=== PATIENT | female | born 1990 | race African-American/Black ===

== ENCOUNTER 2022-01-22 05:30 | Emergency (ER) | payer MEDICAID, SELFPAY ==
[2022-01-22 05:42] VITALS: BP 117/77; TEMP 37.4
--- NOTE | 2022-01-22 05:54 | ED.FEMALEGU ---
HPI - Female Genitourinary General Chief complaint: Vaginal Bleeding Stated complaint: vag bleeding 11 weeks preg Time Seen by Provider: 01/22/22 05:35 Source: patient History of Present Illness HPI Narrative: approximate 11 weeks by ultrasound presents with vaginal bleeding. Patient reports she was talking to her friend this morning she laughed felt like she right herself however when she looked down she noted blood so she called ambulance and came to the ER for evaluation as she was concerned she was a miscarriage. She denies any abdominal pain or cramping for she passed the one blood clot has not noted any additional bleeding she denies any urinary symptoms. Related Data Allergies Allergy/AdvReac Type Severity Reaction Status Date / Time No Known Allergies Allergy Unverified 12/29/21 15:07 Review of Systems Review of Systems: CONSTITUTIONAL: Denies fever, chills, or sweats. EYES: Denies visual changes, redness, or discharge. ENT: Denies rhinorrhea, congestion, sore throat, or otalgia. CARDIOVASCULAR: Denies chest pain, palpitations, or edema. RESPIRATORY: Denies cough or dyspnea. GASTROINTESTINAL: Denies abdominal pain, nausea, vomiting, or diarrhea. GENITOURINARY: Denies dysuria or hematuria. SKIN: Denies rash or itching. MUSCULOSKELETAL: Denies back pain, joint pain, or myalgia. NEUROLOGIC: Denies headache, numbness, dizziness, or weakness. PSYCHIATRIC: Denies anxiety or depression. All systems reviewed & are unremarkable except as noted in HPI and below PMFSH Past Medical History Medical History Asthma Right hand fracture Family History Family History Mother Cerebrovascular accident Seizure Social History Social History Smoking status: Never smoker Alcohol intake: never Substance use: never Gender identity (if verbalized by the patient): Female Exam Narrative: GENERAL: Well-appearing, well-nourished, and in no acute distress. HEAD: Normocephalic, atraumatic. EYES: PERRLA and EOMI. ENT: Nares clear, no rhinorrhea or epistaxis. Mucous membranes moist. NECK: Supple. No masses. No JVD ABDOMEN: Soft, nontender, nondistended, normal active bowel sounds. EXTREMITIES: Normal range of motion. No edema. SKIN: Warm, dry, no rash. NEURO: No focal deficits. Alert and oriented x3. PSYCH: Normal mood and affect. Course Course Emergency Course: Bedside ED transabdominal pelvic ultrasound. There is a single IUP with good movement heart rate of 150 no masses on the adnexa no fluid noted in the pelvis. Findings suggestive of viable single intrauterine Reevaluation(s) Reevaluation #1: Patient is resting comfortably Date: 01/22/22 Time: 07:16 Vital Signs Vital signs: Vital Signs Temperature 37.4 C 01/22/22 05:42 Blood Pressure 117/77 01/22/22 05:42 Temperature 37.4 C 01/22/22 05:42 Blood Pressure 117/77 01/22/22 05:42 MDM - Female Genitourinary MDM Narrative Medical decision making narrative: H&P as above, vss, pt looks clinically well, exam with nonacute abdomen, labs reassuring, img showed viable single IUP, additional labs/img considered, symptomatic relief available as needed, on reevaluation pt continues to looks clinically well. Suspect threatened , dns significant hemorrhage, loss, acute abdomen. plan to tx/monitor as op w/ OB f/u findings/plan discussed with pt, pt agree/comfortable with plan, return precautions given. Patient already has OB follow-up scheduled for Wednesday next week Lab Data Result diagrams: 01/22/22 06:02 Labs: Lab Results 01/22/22 01/22/22 01/22/22 Range/Units 06:02 06:02 06:02 WBC 4.2 L (4.5-10.0) K/mm3 RBC 3.68 L (4.2-5.4) M/mm3 Hgb 10.7 L (12.0-15.0) g/dL Hct 32.9 L (37.0-47.0) % MCV 89.4 (80-100) fl
[2022-01-22] MEDS: SODIUM CHLORIDE 0.9% IV 1,000 ML 999 ML IV CONT (05:59)
[2022-01-22 06:14] LABS: Basophils Percent Auto 0.2 % (0.2-1.2); Eosinophils Percent Auto 0.5 % (0-4.4); Hematocrit 32.9 % (37.0-47.0); Hemoglobin 10.7 g/dL (12.0-15.0); Immature Granulocyte Absolute 0.01 K/mm3 (0.00-0.031); Immature Granulocyte Percent A 0.2 % (0-0.5); Lymphocytes Absolute Auto 1.57 K/mm3 (0.9-3.2); Lymphocytes Percent Auto 37.5 % (18.3-44.2); Mean Corpuscular HGB Conc 32.5 g/dl (32-36); Mean Corpuscular Hemoglobin 29.1 pg (26-34); Mean Corpuscular Volume 89.4 fl (80-100); Mean Platelet Volume 10.7 fl (7.4-10.4); Monocytes Absolute Auto 0.3 K/mm3 (0.1-0.6); Monocytes Percent Auto 6.2 % (2.6-8.5); Neutrophils Absolute Auto 2.3 K/mm3 (1.3-6.7); Neutrophils Percent Auto 55.4 % (45.5-73.1); Platelet Count Result 173 k/mm3 (150-375); Red Blood Count 3.68 M/mm3 (4.2-5.4); Red Cell Distribution Width 11.6 % (11.5-14.5); White Blood Count 4.2 K/mm3 (4.5-10.0)
[2022-01-22 06:53] LABS: Add Urine Microscopic? YES; Appearance Urine Cloudy (Clear); Bilirubin Urine Negative (Negative); Blood Urine 2+ (Negative); Color Urine Amber (Yellow); Glucose Urine UA Negative (Negative); Ketones Urine 2+ mg/dL (Negative); Leukocyte Esterase Ur Negative LEU/UL (Negative); Mucus Urine Few /lpf; Nitrate Urine Negative (Negative); Protein Urine 2+ mg/dL (Negative); RBC Urine >75 /hpf (0-2); Squamous Epithelial Cell Urine Many /hpf (Few); Urobilinogen Urine Negative mg/dL (<2.0)
--- NOTE | 2022-01-22 07:25 | PC.NURSE ---
Per Dr. Sanchez, bedside sono by was ordered and done; someone cancelled his order and placed a different order; I called sono tech, had not started test yet. I instructed her not to start the test, return the pt. to the ED and I will cancel the order.
== END 2022-01-22 07:46 | disposition home or self-care (01) ==
PROVIDERS: Emergency Provider Emergency Medicine; PCP Obstetrics & Gynecology
DX: O20.0 Threatened abortion (principal); Z3A.11 11 weeks gestation of pregnancy; O99.511 Diseases of the respiratory system complicating pregnancy, first trimester; J45.909 Unspecified asthma, uncomplicated
CPT/HCPCS: 36415; 81001; 84702; 85025; 85461; 87086; 96360; 99284; J7030

== ENCOUNTER 2022-04-29 08:39 | Observation (INO) | payer OTHER, SELFPAY ==
--- NOTE | 2022-04-29 08:53 | OBADM ---
This patient, Kathryn Yuan, admitted to the OB room OB Post 117 for observation. Patient/family oriented to hospital policies and general routines including ID bracelet, bed and alarms, visiting hours, pain management, procedures, bathroom and other care routines, personal items, smoking policy, room service/diet, and visiting hours. Patient/Family are encouraged to report perceived risks to care and to ask questions if they do not understand what they are told or what they should do.
[2022-04-29 09:00] VITALS: BP 112/69; PULSE 87
[2022-04-29 09:21] LABS: Hemoglobin 11.1 g/dL (12.0-15.0); Mean Corpuscular HGB Conc 32.6 g/dl (32-36); Mean Corpuscular Hemoglobin 29.3 pg (26-34); Mean Corpuscular Volume 89.7 fl (80-100); Mean Platelet Volume 11.6 fl (7.4-10.4); Platelet Count Result 179 k/mm3 (150-375); Red Blood Count 3.79 M/mm3 (4.2-5.4); Red Cell Distribution Width 12.8 % (11.5-14.5); White Blood Count 7.8 K/mm3 (4.5-10.0)
[2022-04-29 09:35] LABS: Alanine Aminotransferase 12 U/L (6-35); Albumin Level 3.4 g/dL (3.5-5.1); Alkaline Phosphatase 61 U/L (38-126); Anion Gap 5 mmol/L (8-16); Aspartate Amino Transferase 21 U/L (14-36); Bilirubin,Total 0.2 mg/dL (0.2-1.3); Blood Urea Nitrogen 5 mg/dL (7-17); Calcium 8.6 mg/dL (8.4-10.2); Carbon Dioxide 21 mmol/L (22-30); Chloride 108 mmol/L (98-107); Estimated Glomerular Filt Rate > 60; Glucose 116 mg/dL (65-110); Potassium 3.2 mmol/L (3.4-5.0); Sodium 134 mmol/L (137-145)
--- NOTE | 2022-04-29 09:54 | PC.NURSE ---
0936- Labs reveiwed with Dr. Scanlon, orders to discharge to ED for further evaluation
[2022-04-29 09:59] LABS: Appearance Urine Clear (Clear); Bilirubin Urine 1+ (Negative); Blood Urine Negative (Negative); Color Urine Yellow (Yellow); Glucose Urine UA Negative (Negative); Ketones Urine Trace mg/dL (Negative); Leukocyte Esterase Ur Negative LEU/UL (NEGATIVE); Nitrate Urine Negative (Negative); Protein Urine Negative (Negative); Urobilinogen Urine 0.2 mg/dL (<2.0)
[2022-04-29 10:04] LABS: Mucus Urine Few /lpf; RBC Urine 0-2 /hpf (0-2); Squamous Epithelial Cell Urine Occasional /hpf (Few); WBC Urine 0-3 /hpf (0-3)
[2022-04-29 10:19] LABS: Add Urine Microscopic? YES
--- NOTE | 2022-04-30 12:24 | P.PNOB_ITS ---
OB - Triage/Final Diagnosis Visit Information Comments/Additional reasons for admission: I have assessed the risk for this patient, Kathryn Yuan, and determined that she would benefit from observation care. Evaluation Laboratory results: Laboratory Tests 04/29/22 04/29/22 04/29/22 09:04 09:04 09:04 WBC 7.8 RBC 3.79 L Hgb 11.1 L Hct 34.0 L MCV 89.7 MCH 29.3 MCHC 32.6 RDW 12.8 Plt Count 179 MPV 11.6 H Sodium 134 L Potassium 3.2 L Chloride 108 H Carbon Dioxide 21 L Anion Gap 5 L BUN 5 L Creatinine 0.60 L Estim Creat Clear Calc Not Reportable Estimated GFR > 60 Glucose 116 H Calcium 8.6 Total Bilirubin 0.2 AST 21 ALT 12 Alkaline Phosphatase 61 Total Protein 7.0 Albumin 3.4 L Urine Color Yellow Urine Appearance Clear Urine pH 6.0 Ur Specific [place] 1.020 Urine Protein Negative Urine Glucose (UA) Negative Urine Ketones Trace Ur Blood (Man) Negative Urine Nitrate Negative Urine Bilirubin 1+ H Urine Urobilinogen 0.2 Ur Leukocyte Esterase Negative Urine RBC 0-2 Urine WBC 0-3 Ur Squamous Epith Cells Occasional Urine Mucus Few H Final Diagnosis (1) Abdominal pain affecting : Code(s): O26.899 - Other specified related conditions, unspecified trimester; R10.9 - Unspecified abdominal pain Status: Acute
== END 2022-04-29 09:50 | disposition other institution (70) ==
PROVIDERS: Admitting Provider Obstetrics & Gynecology; Visit Provider Obstetrics & Gynecology
DX: O26.892 Other specified pregnancy related conditions, second trimester (principal); R10.9 Unspecified abdominal pain; Z3A.25 25 weeks gestation of pregnancy
CPT/HCPCS: 36415; 80053; 81001; 85027; 87086; G0378; G0379

== ENCOUNTER 2022-04-29 09:55 | Emergency (ER) | payer OTHER, SELFPAY ==
--- NOTE | ~2022-04-29 | US_ITS ---
US abdomen limited 04/29/2022 12:36 Indication: Patient 25 weeks . Acute right lower abdomen pain. Evaluate for appendicitis. Procedure: High-resolution Limited ultrasound of the right lower quadrant Comparison: Ultrasound dated 03/23/2022 Findings: Intrauterine is identified, partially visualized. The appendix is not demonstrate d. No abnormal masses or fluid collections. Impression: 1: Appendix not visualized. No abnormal masses or fluid collections identified in the right lower abd omen. Reviewed, dictated and finalized at location A. Impression: 1: Appendix not visualized. No abnormal masses or fluid collections identified in the right lower abdomen.
[2022-04-29 09:56] VITALS: BP 101/63; PULSE 86; RESP 18; TEMP 36.6; O2SAT 99
--- NOTE | 2022-04-29 11:11 | ED.GENADULT ---
HPI - General Adult General Chief complaint: Abdominal Pain Stated complaint: abd pain; cleared by [facility] Time Seen by Provider: 04/29/22 10:29 History of Present Illness HPI narrative: Patient is a 31-year-old female who presents to the ED with report of mid lower abdominal pain. Patient is G2, P1 and currently 25 weeks . She reports she was driving around 8 AM this morning when she suddenly developed severe pain in her mid lower abdomen. She states the pain felt like contractions and would present very severely, and then subside for approximately 5 minutes. She states she felt lightheaded at that time due to the pain, but denied any nausea or vomiting. She was seen by her ENVIRONMENTAL CONFLICT MANAGER today and reportedly cleared regarding the baby. She was then sent here for further evaluation. She had blood work and a urinalysis done prior to arrival. Patient reports pain is improved currently, but she now reports having pain in her lower back. She has not taken any Tylenol for the pain. Denies any recent fever, chills, chest pain, difficulty breathing, urinary symptoms, constipation, diarrhea, vaginal bleeding, leakage of fluid. She has had a relatively uneventful thus far. She states baby has been very active today. Related Data Allergies Allergy/AdvReac Type Severity Reaction Status Date / Time No Known Allergies Allergy Verified 04/29/22 10:18 Review of Systems Review of Systems: CONSTITUTIONAL: Denies fever, chills, or sweats. EYES: Denies visual changes. CARDIOVASCULAR: Denies chest pain. RESPIRATORY: Denies cough or dyspnea. GASTROINTESTINAL: Reports mid lower ABD pain. Denies constipation, nausea, vomiting, or diarrhea. GENITOURINARY: Denies dysuria, vaginal bleeding, leakage of fluid, or hematuria. MUSCULOSKELETAL: Reports lower back pain. NEUROLOGIC: Reports lightheadedness. Denies headache, numbness, or weakness. All systems reviewed & are unremarkable except as noted in HPI and below PMFSH Past Medical History Medical History (Updated 04/29/22 @ 13:28 by Carissa Weir PA-C) Asthma Right hand fracture Surgical History Surgical History (Updated 04/29/22 @ 11:18 by Carissa Weir PA-C) No pertinent past surgical history Family History Family History Mother Cerebrovascular accident Seizure Social History Social History Smoking status: Never smoker Alcohol intake: never Substance use: never Gender identity (if verbalized by the patient): Female Exam Narrative: GENERAL: Well appearing, well-nourished, non-toxic, in no acute distress. HEAD: Normocephalic, atraumatic. THROAT: Pharynx clear, no exudate. MMs moist. NECK: Supple. No adenopathy, no masses. RESPIRATORY: Airway patent, respirations nonlabored. Clear to auscultation bilaterally, no rales, rhonchi, wheezing. CARDIOVASCULAR: Regular rate and rhythm without murmurs, rubs, or gallops. Radial pulses 2+ and equal bilaterally. ABDOMINAL: Soft, uterus gravid, mild TTP just below umbilicus. No localized RLQ or LLQ tenderness. Normoactive BS. MUSCULOSKELETAL: Moves all extremities. Strength/ROM intact without gross deformities. SKIN: Warm, dry, normal color. No rashes. NEURO: A&O X3. Speech clear. Cranial nerves II-XII grossly intact. Steady gait. No ataxic movements. PSYCHIATRIC: Appropriate mood and affect. Normal interaction. Course Consultations Consultation #1: Discussed case with Dr. Scanlon, ENVIRONMENTAL CONFLICT MANAGER, reported patient was complaining of RLQ pain on her examination. Recommended attempting ultrasound to try to visualize appendix. Otherwise patient can be discharged home with strict return precautions and follow-up at her appointment on Wednesday. Date: 04/29/22 Time: 11:57 Vital Signs Vital signs: Vital Signs Temperature 97.8 F 04/29/22 09:56 Pulse Rate 86 04/29/22 09:56 Respiratory Rate 18 04/29/22 09:56 Blood Pressur
[2022-04-29] MEDS: SODIUM CHLORIDE 0.9% IV 1,000 ML 999 ML IV CONT (11:38)
[2022-04-29 13:22] VITALS: BP 139/76; PULSE 70; RESP 17; O2SAT 98
[2022-04-29] MEDS: POTASSIUM CHLORIDE 20 MEQ TABLET 40 MEQ PO (13:43)
== END 2022-04-29 13:50 | disposition home or self-care (01) ==
PROVIDERS: Emergency Provider Emergency Medicine; PCP Obstetrics & Gynecology
DX: O26.892 Other specified pregnancy related conditions, second trimester (principal); R10.31 Right lower quadrant pain; O99.512 Diseases of the respiratory system complicating pregnancy, second trimester; J45.909 Unspecified asthma, uncomplicated; Z3A.25 25 weeks gestation of pregnancy
CPT/HCPCS: 36415; 76705; 80053; 81001; 85027; 87086; 96361; 96365; 99284; A9270; G0378; G0379; J0131; J7030

== ENCOUNTER 2022-05-14 18:03 | Observation (INO) | payer OTHER, SELFPAY ==
[2022-05-14 18:26] VITALS: BP 103/60; PULSE 90
[2022-05-14 18:30] VITALS: BP 105/68; PULSE 87
[2022-05-14 18:37] VITALS: BMI 45.1
[2022-05-14 18:42] LABS: Appearance Urine Clear (Clear); Bilirubin Urine 1+ (Negative); Blood Urine Trace-lysed (Negative); Color Urine Yellow (Yellow); Glucose Urine UA Trace mg/dL (Negative); Ketones Urine 2+ mg/dL (Negative); Leukocyte Esterase Ur 1+ LEU/UL (NEGATIVE); Nitrate Urine Negative (Negative); Protein Urine 2+ mg/dL (Negative); Specific Grav Ur >= 1.030 (1.001-1.035)
[2022-05-14 18:47] LABS: Amorphous Sediment Urine Few; Bacteria Urine Trace /hpf; Mucus Urine Heavy /lpf; RBC Urine 21-50 /hpf (0-2); Squamous Epithelial Cell Urine Many /hpf (Few); WBC Urine 21-30 /hpf (0-3)
[2022-05-14 18:48] LABS: Add Urine Microscopic? YES
[2022-05-14] MEDS: ACETAMINOPHEN 500 MG TABLET 1000 MG PO (19:35)
--- NOTE | 2022-05-20 12:51 | PM.OBTRLD ---
OB - Triage/Final Diagnosis Visit Information Reason for evaluation: threatened labor Comments/Additional reasons for admission: I have assessed the risk for this patient, Kathryn Yuan, and determined that she would benefit from observation care. Evaluation Laboratory results: Laboratory Tests 05/14/22 18:27 Urine Color Yellow Urine Appearance Clear Urine pH 6.0 Ur Specific [place] >= 1.030 Urine Protein 2+ H Urine Glucose (UA) Trace H Urine Ketones 2+ H Ur Blood (Man) Trace-lysed Urine Nitrate Negative Urine Bilirubin 1+ H Urine Urobilinogen 1.0 Ur Leukocyte Esterase 1+ H Urine RBC 21-50 H Urine WBC 21-30 H Ur Squamous Epith Cells Many H Amorphous Sediment Few H Urine Bacteria Trace Urine Mucus Heavy H
== END 2022-05-14 20:05 | disposition home or self-care (01) ==
PROVIDERS: Admitting Provider Obstetrics & Gynecology; PCP Obstetrics & Gynecology; Visit Provider Obstetrics & Gynecology
DX: O26.899 Other specified pregnancy related conditions, unspecified trimester (principal); R31.9 Hematuria, unspecified; Z3A.00 Weeks of gestation of pregnancy not specified
CPT/HCPCS: 81001; 87086; A9270; G0378; G0379

== ENCOUNTER 2022-05-21 15:43 | Observation (INO) | payer OTHER, SELFPAY ==
--- NOTE | ~2022-05-21 | US_ITS ---
EXAMINATION: US OB limited DATE: 05/21/2022 17:06 INDICATION: Spotting during third trimester TECHNIQUE: Real-time ultrasound of the pelvis was performed. The interpreting radiologist was not pre sent for the study. COMPARISON: None. FINDINGS: There is a single living fetus in breech presentation. The placenta is posterior and 7.9 cm from the internal cervical os. The cervical length is 4.2 cm. cardiac activity and movem ent are noted. heart rate is 145 beats per minute (bpm). The amniotic fluid index is subjective ly normal. IMPRESSION: 1. Single living fetus in breech presentation. 2. No sonographic correlate for spotting. Reviewed, dictated and finalized at location F.
--- NOTE | 2022-05-21 15:43 | OBADM ---
This patient, Kathryn Yuan, admitted to the OB room OB Post 111 for observation. Patient/family oriented to hospital policies and general routines including ID bracelet, bed and alarms, visiting hours, pain management, procedures, bathroom and other care routines, personal items, smoking policy, room service/diet, and visiting hours. Patient/Family are encouraged to report perceived risks to care and to ask questions if they do not understand what they are told or what they should do.
[2022-05-21 16:18] VITALS: BP 96/53; PULSE 78
[2022-05-21 16:24] VITALS: BMI 45.6
[2022-05-21 16:29] VITALS: BP 96/64; PULSE 81
[2022-05-21 16:44] VITALS: BP 95/63; PULSE 78
[2022-05-21 17:12] LABS: Bacteria Urine Trace /hpf; Mucus Urine Moderate /lpf; Squamous Epithelial Cell Urine Moderate /hpf (Few)
[2022-05-21 17:14] LABS: Add Urine Microscopic? YES; Appearance Urine Clear (Clear); Bilirubin Urine 1+ (Negative); Blood Urine Trace-lysed (Negative); Color Urine Yellow (Yellow); Glucose Urine UA Negative (Negative); Ketones Urine 1+ mg/dL (Negative); Leukocyte Esterase Ur 1+ LEU/UL (Negative); Nitrate Urine Negative (Negative); Protein Urine 1+ mg/dL (Negative); Specific Grav Ur >= 1.030 (1.001-1.035); pH Urine 5.5 (5.0-9.0)
[2022-05-21] MEDS: FLUCONAZOLE 150 MG TABLET PO (17:56)
--- NOTE | 2022-05-25 16:55 | PM.OBTRLD ---
OB - Triage/Final Diagnosis Visit Information Comments/Additional reasons for admission: I have assessed the risk for this patient, Kathryn Yuan, and determined that she would benefit from observation care. Evaluation Laboratory results: Laboratory Tests 05/21/22 16:47 Urine Color Yellow Urine Appearance Clear Urine pH 5.5 Ur Specific [place] >= 1.030 Urine Protein 1+ H Urine Glucose (UA) Negative Urine Ketones 1+ H Ur Blood (Man) Trace-lysed Urine Nitrate Negative Urine Bilirubin 1+ H Urine Urobilinogen 1.0 Leukocyte Esterase Rfl 1+ H Urine RBC 6-10 H Urine WBC 7-9 H Ur Squamous Epith Cells Moderate H Urine Bacteria Trace Urine Mucus Moderate H Final Diagnosis (1) Abdominal pain affecting : Code(s): O26.899 - Other specified related conditions, unspecified trimester; R10.9 - Unspecified abdominal pain Status: Acute
== END 2022-05-21 18:06 | disposition home or self-care (01) ==
PROVIDERS: Admitting Provider Obstetrics & Gynecology; Visit Provider Obstetrics & Gynecology
DX: O26.893 Other specified pregnancy related conditions, third trimester (principal); R10.9 Unspecified abdominal pain; Z3A.28 28 weeks gestation of pregnancy
CPT/HCPCS: 76815; 81001; 87086; 87088; A9270; G0378; G0379

== ENCOUNTER 2022-07-22 12:49 | Inpatient (IN) | payer OTHER, SELFPAY ==
[2022-07-22] VITALS (65 sets, daily range): BP systolic 95–136; BP diastolic 55–97; PULSE 64–116; RESP 18; TEMP 35.9–36.6; O2SAT 99–100; BMI 46.7
[2022-07-22 14:58] LABS: Basophils Percent Auto 0.1 % (0.2-1.2); Eosinophils Percent Auto 0.1 % (0-4.4); Hematocrit 34.6 % (37.0-47.0); Hemoglobin 11.3 g/dL (12.0-15.0); Immature Granulocyte Absolute 0.06 K/mm3 (0.00-0.031); Immature Granulocyte Percent A 0.8 % (0-0.5); Lymphocytes Absolute Auto 1.22 K/mm3 (0.9-3.2); Lymphocytes Percent Auto 16.6 % (18.3-44.2); Mean Corpuscular HGB Conc 32.7 g/dl (32-36); Mean Corpuscular Hemoglobin 28.7 pg (26-34); Mean Corpuscular Volume 87.8 fl (80-100); Mean Platelet Volume 11.7 fl (7.4-10.4); Monocytes Absolute Auto 0.4 K/mm3 (0.1-0.6); Monocytes Percent Auto 5.8 % (2.6-8.5); Neutrophils Absolute Auto 5.6 K/mm3 (1.3-6.7); Neutrophils Percent Auto 76.6 % (45.5-73.1); Platelet Count Result 173 k/mm3 (150-375); Red Blood Count 3.94 M/mm3 (4.2-5.4); Red Cell Distribution Width 12.9 % (11.5-14.5); White Blood Count 7.4 K/mm3 (4.5-10.0)
[2022-07-22 14:59] LABS: Appearance Urine Clear (Clear); Bilirubin Urine Negative (Negative); Blood Urine Negative (Negative); Color Urine Yellow (Yellow); Glucose Urine UA Negative (Negative); Ketones Urine Negative (Negative); Leukocyte Esterase Ur Negative LEU/UL (NEGATIVE); Nitrate Urine Negative (Negative); Protein Urine Negative (Negative); Specific Grav Ur 1.015 (1.001-1.035); Urobilinogen Urine 0.2 mg/dL (<2.0)
[2022-07-22 15:08] LABS: Add Urine Microscopic? NO; Bacteria Urine Trace /hpf; Mucus Urine Rare /lpf; RBC Urine 0-2 /hpf (0-2); Squamous Epithelial Cell Urine Rare /hpf (Few)
[2022-07-22 15:12] LABS: Alanine Aminotransferase 11 U/L (6-35); Albumin Level 3.4 g/dL (3.5-5.1); Alkaline Phosphatase 106 U/L (38-126); Anion Gap 7 mmol/L (8-16); Aspartate Amino Transferase 17 U/L (14-36); Bilirubin,Total 0.3 mg/dL (0.2-1.3); Blood Urea Nitrogen 5 mg/dL (7-17); Calcium 8.4 mg/dL (8.4-10.2); Carbon Dioxide 20 mmol/L (22-30); Chloride 106 mmol/L (98-107); Estimated Glomerular Filt Rate > 60; Glucose 85 mg/dL (65-110); Potassium 3.8 mmol/L (3.4-5.0); Sodium 133 mmol/L (137-145)
[2022-07-22 15:13] LABS: Creatinine Urine 82.8 mg/dL; Total Protein Urine Random 7 mg/dL; Ur Ttl Prot Creatinine Ratio 0.08 mg/mg (0-0.20)
[2022-07-22] MEDS: AMPICILLIN 2 GM/NS 100 ML 2 GM/100 ML BAG IVPB (15:50)
[2022-07-22] MEDS: LACTATED RINGERS 1,000 ML 125 ML IV CONT ×2 (15:51→20:03)
[2022-07-22] MEDS: OXYTOCIN 30 UNITS/NS 500 ML 30 UNITS/500 ML BAG IV CONT (15:51)
--- NOTE | 2022-07-22 15:52 | LDADM ---
This patient, Kathryn Yuan, was admitted to Labor/Delivery/Recovery 103 on 07/22/22 at 12:49. Plans for labor, pain management and were discussed with patient. Patient/family oriented to hospital policies and general routines including ID bracelet, bed and alarms, visiting hours, pain management, procedures, bathroom and other care routines, personal items, smoking policy, room service/diet and guest tray routines, security routines, and visiting hours. Patient/Family are encouraged to report perceived risks to care and to ask questions if they do not understand what they are told or what they should do. See OBIX for further documentation.
[2022-07-22 15:53] LABS: HIV 1/2 Ab P24 Ag Result Negative (Negative)
--- NOTE | 2022-07-22 16:08 | PC.NURSE ---
1301- called,informed pt arrived via EMS. Pt states she is having contractions. SVE is 1.5cm/thick/high. Variability is moderate with an acceleration noted on tracing. Orders received to induce pt with low dose pitocin and draw PIH labs.
[2022-07-22 16:22] LABS: Glucose Point of Care 128 mg/dl (65-105)
--- NOTE | 2022-07-22 17:56 | WPDANESEPP ---
Anes - Eval Pre Procedure Procedure: Labor Epidural Date/Time: 07/22/22 17:56 Surgeon: Capo Preop Diagnosis: labor pain Pre Op Diagnosis: labor pain Patient Data Age: 31 Gender: F Height: 1.57 m Weight: 115.9 kg Last Vital Signs Temp 35.9 C L 07/22/22 12:59 Pulse 109 H 07/22/22 17:46 BP 103/70 07/22/22 17:46 O2 Del Method Room Air 07/22/22 16:06 Allergies Allergy/AdvReac Type Severity Reaction Status Date / Time No Known Allergies Allergy Verified 06/18/22 09:47 Home Medications Medication Instructions Recorded Confirmed Type vitamin no.102-iron 90 1 cap PO DAILY #90 caps 12/29/21 07/22/22 Rx mg-folate 1 mg-dha 200 mg capsule sertraline 50 mg tablet 50 mg PO DAILY #90 tabs 05/06/22 07/13/22 Rx Laboratory Tests 07/22/22 07/22/22 07/22/22 14:26 14:26 14:26 WBC 7.4 K/mm3 K/mm3 (4.5-10.0) RBC 3.94 M/mm3 L M/mm3 (4.2-5.4) Hgb 11.3 g/dL L g/dL (12.0-15.0) Hct 34.6 % L % (37.0-47.0) MCV 87.8 fl fl (80-100) MCH 28.7 pg pg (26-34) MCHC 32.7 g/dl g/dl (32-36) RDW 12.9 % % (11.5-14.5) Plt Count 173 k/mm3 k/mm3 (150-375) MPV 11.7 fl H fl (7.4-10.4) Immature Gran % (Auto) 0.8 % H % (0-0.5) Neut % (Auto) 76.6 % H % (45.5-73.1) Lymph % (Auto) 16.6 % L % (18.3-44.2) [place] % (Auto) 5.8 % % (2.6-8.5) Eos % (Auto) 0.1 % % (0-4.4) Baso % (Auto) 0.1 % L % (0.2-1.2) Lymph # (Auto) 1.22 K/mm3 K/mm3 (0.9-3.2) [place] # (Auto) 0.4 K/mm3 K/mm3 (0.1-0.6) Eos # (Auto) 0.0 K/mm3 K/mm3 (0-0.3) Baso # (Auto) 0.0 K/mm3 K/mm3 (0.0-0.1) Abs Immat Gran (auto) 0.06 K/mm3 H K/mm3 (0.00-0.031) Absolute Neuts (auto) 5.6 K/mm3 K/mm3 (1.3-6.7) Absolute Nucleated RBC 0.0 K/mm3 K/mm3 (0.0-0.012) Nucleated RBC % 0.0 % % (0.0-0.2) Sodium Potassium Chloride Carbon Dioxide Anion Gap BUN Creatinine Estim Creat Clear Calc Estimated GFR Glucose POC Capillary Glucose Uric Acid Cancelled Calcium Total Bilirubin AST ALT Alkaline Phosphatase Total Protein Albumin Urine Color Urine Appearance Urine pH Ur Specific [place] Urine Protein Urine Glucose (UA) Urine Ketones Ur Blood (Man) Urine Nitrate Urine Bilirubin Urine Urobilinogen Ur Leukocyte Esterase Urine RBC Ur Squamous Epith Cells Urine Bacteria Urine Mucus U Random Total Protein Urine Creatinine Protein/Creat Ratio 2 RPR Pending HIV 1&2 Ab/P24 Ag 4thGn Blood Type Antibody Screen 07/22/22 07/22/22 07/22/22 14:26 14:26 14:26 WBC RBC Hgb Hct MCV MCH MCHC RDW Plt Count MPV Immature Gran % (Auto) Neut % (Auto) Lymph % (Auto) [place] % (Auto) Eos % (Auto) Baso % (Auto) Lymph # (Auto) [place] # (Auto) Eos # (Auto) Baso # (Auto) Abs Immat Gran (auto) Absolute Neuts (auto) Absolute Nucleated RBC Nucleated RBC % Sodium 133 mmol/L L mmol/L (137-145) Potassium 3.8 mmol/L mmol/L (3.4-5.0) Chloride 106 mmol/L mmol/L (98-107) Carbon Dioxide 20 mmol/L L mmol/
--- NOTE | 2022-07-22 18:55 | PM.IMHP ---
H&P: HPI History of Present Illness Date/Time: 07/22/22 18:55 Chief Complaint: BPP 4/10 Narrative: Kathryn is a 31yo @ 37.0wks who presented to L&D via ambulance from [facility] office. She was being seen there for co-management of her A2GDM. NST was reactive, but BPP was only positive for fluid; BPP 4/10. She was also found to be having irregular contractions, and on arrival to clinic did have an elevated blood pressure. She denies any bleeding or LOF. Feeling good movements. Her is complicated by: - Obesity -?A2GDM, insulin 14u BID - Anxiety/depression on zoloft Review of Systems Review of Systems: All systems reviewed & are unremarkable except as noted in HPI and below PMFSH Past Medical History Medical History Asthma Right hand fracture Surgical History Surgical History No pertinent past surgical history Family History Family History Mother Cerebrovascular accident Seizure Social History Social History Smoking status: Never smoker Alcohol intake: never Substance use: never Gender identity (if verbalized by the patient): Female Spiritual care concerns: No Meds Home Medications and Allergies Home Medications Medication Instructions Recorded Confirmed Type vitamin no.102-iron 90 1 cap PO DAILY #90 caps 12/29/21 07/22/22 Rx mg-folate 1 mg-dha 200 mg capsule sertraline 50 mg tablet 50 mg PO DAILY #90 tabs 05/06/22 07/13/22 Rx Allergies Allergy/AdvReac Type Severity Reaction Status Date / Time No Known Allergies Allergy Verified 06/18/22 09:47 Vital Signs Vital Signs - 24 hr 07/22/22 12:57 07/22/22 13:01 07/22/22 13:15 Temperature Pulse Rate 64 64 68 Blood Pressure 126/81 118/78 109/67 Oxygen Delivery 07/22/22 13:30 07/22/22 13:45 07/22/22 14:00 Temperature Pulse Rate 69 69 68 Blood Pressure 119/76 119/81 121/82 Oxygen Delivery 07/22/22 16:17 07/22/22 12:59 07/22/22 16:30 Temperature 96.6 F L Pulse Rate 82 96 Blood Pressure 104/71 112/71 Oxygen Delivery 07/22/22 16:45 07/22/22 17:01 07/22/22 17:16 Temperature Pulse Rate 89 91 97 Blood Pressure 127/69 136/97 H 111/75 Oxygen Delivery 07/22/22 17:31 07/22/22 17:46 07/22/22 18:02 Temperature Pulse Rate 87 109 H 79 Blood Pressure 108/88 103/70 95/59 L Oxygen Delivery 07/22/22 18:15 07/22/22 18:17 07/22/22 18:31 Temperature 98 F Pulse Rate 82 75 Blood Pressure 110/73 107/73 Oxygen Delivery 07/22/22 18:46 07/22/22 16:06 Temperature Pulse Rate 72 Blood Pressure 107/73 Oxygen Delivery Room Air Exam Const: General: cooperative, comfortable and no acute distress Nutritional Appearance: obese Resp: Effort & Inspection: normal respiratory effort Cardio: Rate: regular rate GI: GI Palp: No abdominal tenderness and Yes Soft to palpation : Other: FHT's: 130's/ mod yifan/ + accels/ no decels - cat 1 TOCO: ctx's q2min Cervix: 1.5/thick/-4 Membranes: intact Presentation; cephalic H&P: Results Labs Labs: Short CBC 07/22/22 Range/Units 14:26 WBC 7.4 (4.5-10.0) K/mm3 Hgb 11.3 L (12.0-15.0) g/dL Hct 34.6 L (37.0-47.0) % Plt Count 173 (150-375) k/mm3 BMP 07/22/22 14:26 Sodium 133 L Potassium 3.8 Chloride 106 Carbon Dioxide 20 L BUN 5 L Creatinine 0.60 L Glucose 85 Calcium 8.4 Liver Function 07/22/22 Range/Units 14:26 Total Bilirubin 0.3 (0.2-1.3) mg/dL AST 17 (14-36) U/L ALT 11 (6-35) U/L Alkaline Phosphatase 106 (38-126) U/L Albumin 3.4 L (3.5-5.1) g/dL Urine 07/22/22 Range/Units 14:26 Urine Color Yellow (Yellow) Urine Appearance Clear (Clear) Urine pH 6.0 (5.0-9.0) Ur Specific [place]
[2022-07-22] MEDS: AMPICILLIN 1 GM/NS 50 ML 1 GM/50 ML BAG IVPB ×2 (19:49→23:48)
[2022-07-22 20:22] LABS: Glucose Point of Care 110 mg/dl (65-105)
[2022-07-22] MEDS: DINOPROSTONE 10 MG VAG INSERT VAGINAL (23:05)
[2022-07-23] VITALS (250 sets, daily range): BP systolic 71–133; BP diastolic 36–85; PULSE 48–211; RESP 16–20; TEMP 35.9–37.1; O2SAT 96–100
[2022-07-23 00:26] LABS: Glucose Point of Care 79 mg/dl (65-105)
[2022-07-23] MEDS: fentaNYL CITRATE INJ (*CRX) 100 MCG/2 ML VIAL 50 MCG IV PUSH (01:36)
[2022-07-23] MEDS: LACTATED RINGERS 1,000 ML 125 ML IV CONT ×4 (02:52→06:13)
[2022-07-23] MEDS: AMPICILLIN 1 GM/NS 50 ML 1 GM/50 ML BAG IVPB ×3 (03:48→12:00)
--- NOTE | 2022-07-23 04:09 | WPDANESEPN ---
Anes - Epidural Procedure Note Date/Time: 07/23/22 04:09 Consent: I have discussed with the patient/family/POA, the placement of an epidural catheter and the use of epidural narcotic/local anesthetic for labor analgesia and/or postoperative pain management, including associated potential risks, benefits, complications and side effects. I have discussed alternative methods of labor analgesia and/or postoperative pain management. The patient/family/POA, understand(s) and wish(es) to proceed with epidural narcotic/local anesthetic for labor analgesia and/or postoperative pain management. Time-Out: A pre-procedural Time-Out was completed immediately before starting the procedure and confirmed: Patient Identification, Site, Procedure, Patient Position and the Availability of Requisite Equipment. Epidural Insertion Note Skin prep: chlorhexidine and sterile drape Needle: 18g Tuohy-Schliff Catheter: 20g Unstyleted Technique: Loss of resistance. Level of insertion: L3/4 Catheter skin leda (cm): 6 Length in epidural space (cm): 12 Skin anesthesia: lidocaine 1% Test dose: 1.5% Lidocaine with 1:[id number] Epi, negative for subarachnoid Inj and negative for intravascular Inj Time of test dose: 03:14 Observations: tolerated well Complications: none
[2022-07-23 04:53] LABS: Glucose Point of Care 98 mg/dl (65-105)
[2022-07-23 07:19] LABS: Rapid Plasma Reagin Non-Reactive (NonReactive)
[2022-07-23 08:38] LABS: Glucose Point of Care 88 mg/dl (65-105)
[2022-07-23 12:22] LABS: Glucose Point of Care 85 mg/dl (65-105)
--- NOTE | 2022-07-23 13:04 | PM.OBPRVD ---
OB - Delivery Note Procedure Events: Gestational Diabetes and Other (BPP 4/10) Induction method: Per Cervidil Protocol Delivery augmentation: Rupture of Membranes and Pitocin Delivery monitor: External FHT and External Uterine Route of delivery: Laceration Description: None Specimen: Yes Quantitative Blood Loss (ml): 50 Anesthesia type: Epidural Disposition: Floor Baby Date of : 07/23/22 Time of : 12:53 Weeks of gestation at delivery: 37 (.1) gender: Male Weight (pounds): 5 Weight (ounces): 12 presentation: vertex position: Left Occiput Anterior Placenta delivery description: Expressed Cord Vessel Description: 3 Vessels, Nuchal Cord, Loose and Delayed Cord Clamping score one minute: 8 score five minutes: 9 Narrative: Kathryn progressed to complete dilation with strong desire to push. Recurrent deep variables were noted. However she pushed with good maternal effort for approximately 15 minutes and delivered the head over intact perineum. Nuchal cord was noted but delivered through. She easily delivered the 's shoulders and body without complication. The infant was immediately placed skin to skin with spontaneous cry. His mouth and nose were bulb suctioned. Delayed cord clamping was performed. The umbilical cord was then clamped and cut. With Pitocin running and gentle downward traction on the cord, the placenta delivered without complications. Minimal bleeding with good uterine tone was noted. She was examined and no lacerations were noted. Sponge, lap, instrument, and needle counts were correct at the end the procedure. Mom and baby were left bonding in the birthing suite in stable condition. [facility] Delivery Billing Delivery Delivery: Delivery Charge
[2022-07-23] MEDS: OXYTOCIN 30 UNITS/NS 500 ML 30 UNITS/500 ML BAG 125 UNITS IV CONT (13:30)
--- NOTE | 2022-07-23 16:52 | OBPPTRN ---
Patient transferred to post room #282 via wheelchair. Support person present. Oriented to unit, room, information board, rooming in, admission packet and security measures. Patient verbalizes understanding.
[2022-07-24] MEDS: IBUPROFEN 600 MG TABLET PO ×3 (00:25→16:43)
[2022-07-24 06:11] LABS: Hematocrit 30.9 % (37.0-47.0); Hemoglobin 9.9 g/dL (12.0-15.0)
[2022-07-24 07:32] LABS: Glucose Point of Care 70 mg/dl (65-105)
[2022-07-24 07:50] VITALS: BP 100/58; PULSE 66; RESP 16; TEMP 36.4; O2SAT 100
[2022-07-24 08:00] VITALS: PULSE 66; RESP 16; O2SAT 100
--- NOTE | 2022-07-24 08:03 | WPDANLDPN2 ---
Anes-Prog Note L&D Date/Time: 07/24/22 08:03 Comfortable throughout: labor and delivery Neuraxial method: epidural Epidural/Spinal procedure site: clean & non-tender Neuro status: Neuro function grossly intact. Cardiovascular status: normal Respiratory status: normal Airway patency: baseline Mental status: baseline Post-Op hydration status: normal Vital Signs: Last Vital Signs Temp 37.1 C 07/23/22 23:44 Pulse 88 07/23/22 23:44 Resp 18 07/23/22 23:44 BP 111/54 L 07/23/22 23:44 Pulse Ox 100 07/23/22 23:44 O2 Del Method Room Air 07/23/22 17:00 Pain score (VAS): 10 I/O: Intake & Output 07/23/22 07/24/22 07/24/22 23:59 07:59 15:59 Intake Total 1000 Output Total 750 Balance 250 Post-procedural complaints: none Patient feedback: Patient satisfied with anesthetic care.
[2022-07-24] MEDS: POLYSACCHARIDE IRON COMPLEX 150 MG CAPSULE PO ×2 (08:25→16:42)
[2022-07-24] MEDS: DOCUSATE SODIUM 100 MG CAPSULE PO ×2 (08:25→16:42)
--- NOTE | 2022-07-24 08:50 | PM.OBPNVD ---
OB - PN: Subj Subjective Date/time seen: 07/24/22 08:50 Narrative: PPD#1 Kathryn reports doing well today. 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 Her pain is controlled. She is tolerating regular diet, voiding, passing gas, and ambulating without issues. She is bottle feeding. She would like her son circumcised. OB - PN: Obj Data Labs CBC & Chem 7: 07/24/22 05:11 07/22/22 14:26 Labs: Laboratory Results - last 24 hr 07/23/22 07/24/22 07/24/22 12:17 05:11 07:22 Hgb 9.9 L Hct 30.9 L POC Capillary Glucose 85 70 OB - PN A/P Assessment and Plan (1) Normal vaginal delivery of third : Code(s): O80 - Encounter for full-term uncomplicated delivery Status: Acute Plan day: 1 Plan: routine care and discharge home (tomorrow) Comments: - Pelvic rest; take meds as prescribed - ER return precautions: fever, n/v/abd pain, bleeding, HTN Time Spent With Patient Time: Total time spent is greater than 50% in coordination of care (as documented) at patient's floor/unit and/or counseling patient: Time with patient: less than 15 minutes Review of Systems Constitutional: Constitutional: Denies chills, Denies fever(s) and Denies headache(s) Eyes: Eyes: Denies change in vision ENT: Denies dizziness and Denies headache(s) Cardiovascular: Cardiovascular: Denies chest pain, Denies palpitations and Denies dyspnea Respiratory: Respiratory: Denies cough and Denies dyspnea Gastrointestinal: Gastrointestinal: Denies nausea and Denies vomiting Neurologic: Denies dizziness and Denies headache(s) Endocrine: Endocrine: Denies palpitations Exam Const: General: cooperative, comfortable and no acute distress Orientation/consciousness: patient oriented x3 Resp: Effort & Inspection: normal respiratory effort Auscultation: clear to auscultation bilaterally Cardio: Rate: regular rate GI: Inspection: non-distended GI Palp: No abdominal tenderness and Yes Soft to palpation Auscultation: normal bowel sounds : Other: fundus firm Skin: General skin exam: normal color Neuro: General: patient oriented x3 Extrem: General: normal to inspection Psych: Appearance: grossly normal Affect: normal affect Attitude: cooperative
--- NOTE | 2022-07-24 09:19 | PC.NURSE ---
[id number] Introductions were made, then consulted with patient to assess needs related to . Mother led the conversation with her?plans to breastfeed?her infant but she isn't making any milk so she bottle fed . Resources provided for inpatient and outpatient services using a resource guide and mom/baby guide. Mother voiced understanding of information and had some question, received assistance with after education regarding the demonstrating feeding cues. Infant wet and stool diaper changed and place skin to skin. very rarely demonstrates feeding cues. Mother educated on stimulating with massage touch and voiced calling out when her begins to squirm looking for the breast or if he doesn't after 20 min of skin to skin. Reported to primary RN. [id number] - Consulted with patient after being called for assistance. Mother led the conversation with infant is sleeping. Reviewed hand expression, electric pumping, milk production, mother's plan to feed her breastmilk and breastfeed. Reviewed stimulating with massage touch, burping, and changing positioning. Dr. Scanlon entered the room. placed skin to skin with not making effort to breastfeed mother was encouraged to initiate pumping her breast for a milk supply every 3 hours 1-2 times at night and mother consents to the plan. 0915 - Breast pump provided due to ineffective . Instructions given on cleaning, care, usage, that there should be no pain, pumping schedule for milk production, collection, and storage of human milk. Mother is starting to eat her breakfast, father of infant remains sleeping on the couch, and is in the nursery for a circumcision. Mother voiced understanding of the education shared along with mom/baby guide for additional resource information, and to call for an assessment for correct placement, flange size, to pump for comfort and nipple stretching/stimulation for adequate milk production every 3 hours (8 times in 24 hours) with no pain. Mother voiced understanding of the education shared along with mom and baby guide for additional resource information. Reported to the primary RN.
[2022-07-24] MEDS: ACETAMINOPHEN 325 MG TABLET 650 MG PO (11:24)
[2022-07-24 12:20] VITALS: BP 107/59; PULSE 79; RESP 16; TEMP 36.3; O2SAT 100
--- NOTE | 2022-07-24 16:10 | PCCCNOTE ---
Per Care Coordination: Met with pt. and VIANEY Bunn today. This is pt.'s second child. She has all necessary supplies at home including a car seat, crib, clothing, diapers etc. Pt. hopes to breastfeed at discharge and has a breast pump at home to use. She has been working with the nurse during stay. Pt. anticipates discharge tomorrow. Reports [facility] will transport her and baby home. Provided resources. Pt. reports she plans to use [facility] services at discharge and already has information to add baby to services. Pt. and [facility] agreeable to basket and this was provided. Pt. aware of her follow up appointments and also reports [facility] will transport. Pt. and [facility] deny any further needs. Spoke with RN who reported consult was regarding father overnight making noises and not safety concerns for pt. or infant at home. Pt. and [facility] both deny any concerns with home. Are hopeful to discharge tomorrow.
[2022-07-24 18:45] VITALS: BP 96/67; PULSE 77; RESP 16; TEMP 36.7
[2022-07-25 08:00] VITALS: BP 113/63; PULSE 85; RESP 16; TEMP 36.4; O2SAT 98
[2022-07-25] MEDS: DOCUSATE SODIUM 100 MG CAPSULE PO (09:39)
[2022-07-25] MEDS: MULTIVIT/MIN/PREN/FOL AC/IRON TABLET 1 TAB PO (09:39)
[2022-07-25] MEDS: TETANUS,DIPHTHERIA,AC PERTUSSIS ADULT (0.5 ML) BOOSTRIX IM (09:39)
[2022-07-25] MEDS: POLYSACCHARIDE IRON COMPLEX 150 MG CAPSULE PO (09:39)
--- NOTE | 2022-07-25 11:39 | PC.NURSE ---
Patient was given the opportunity to view the discharge video Mother & Baby Care, The First Two Weeks and to ask questions. Patient declined viewing the video and has been given the mother/baby guide for home reference.
--- NOTE | 2022-07-28 10:14 | PM.OBDSVD ---
DS: Admitting Diagnosis Discharge Date 07/25/22 Admitting Diagnosis BPP 4/10 A2GDM DS: Discharge Diagnosis Discharge Diagnosis (1) Non-reassuring status: Status: Acute (2) Gestational diabetes: Qualifiers: Gestational diabetes mellitus control: insulin-controlled Trimester: third trimester Qualified Code(s): O24.414 - Gestational diabetes mellitus in , insulin controlled Code(s): O24.419 - Gestational diabetes mellitus in , unspecified control Status: Acute (3) Normal vaginal delivery of third : Code(s): O80 - Encounter for full-term uncomplicated delivery Status: Acute OB - DS: Summary OB Procedures : NST and Ultrasound OB Procedures Intrapartum: Spontaneous Vag Delivery OB Procedures: : None Peripartum Data Infant Delivery Method: Natural Vaginal Laceration Description: None complications: none 1: Gender: Male Disposition of : home Status at Discharge Functional status at discharge: independent ambulation Overall status at discharge: patient is back to baseline Time Spent with Patient Time attestation: Total time spent providing and/or coordinating discharge services: Time spent: Less than 30 minutes Exam Const: General: cooperative, comfortable and no acute distress Orientation/consciousness: patient oriented x3 Resp: Effort & Inspection: normal respiratory effort Auscultation: clear to auscultation bilaterally Cardio: Rate: regular rate GI: Inspection: non-distended GI Palp: No abdominal tenderness and Yes Soft to palpation Auscultation: normal bowel sounds : Other: fundus firm Skin: General skin exam: normal color Neuro: General: patient oriented x3 Extrem: General: normal to inspection Psych: Appearance: grossly normal Affect: normal affect Attitude: cooperative DS: Data Data Completed and Pending Pending studies at discharge: Pending at discharge 07/23/22 15:43 Surgical [PTH] Routine Discharge Plan Discharge Attending physician on discharge: Casandra Scanlon Discharging Clinician: Casandra Scanlon Anticipated Discharge Date/Time: 07/25/22 10:01 Patient Disposition: Home, Self-Care Activity: may shower, may drive after 2 weeks and pelvic rest Diet: regular Discharge Instructions: Education: Mom and Baby Guide Given to: Mother Follow-Up: Call your delivering provider's office for an appointment to be seen in: 4 Weeks Mom and baby should come to the [facility] for the follow-up appointment. Appointment Date/Time: Wednesday, July 27, 2022 at 9:00 a.m. What to expect at your follow-up visit: Blood Pressure Check Physical Assessment Call [phone] if you are unable to keep your appointment time. BREAST CARE: * Wear a snug supportive bra. * For engorgement discomfort: Breast Feeding: * Apply warm moist washcloths * Express milk as needed to relieve engorgement * Wear loose clothing Bottle Feeding: * May apply ice packs * For sore nipples: * Identify correct latch-on * Apply warm moist washcloths before and after nursing * Air dry nipples after nursing * May apply Lansinoh cream to nipples EPISIOTOMY/PERINEAL CARE: * Until bleeding stops, use your romana bottle after urinating * Change your pad frequently throughout the day * You may take sitz baths several times a day (fill your bathtub with warm water and soak for 20 minutes.) Do NOT bathe in the water * No tub baths until seen by your physician - You may shower ACTIVITY: * Rest as much as possible. * Do not exercise or lift anything heavier than your baby (such as laundry or other children.) * Avoid stairs or driving as much as possible. * Do not put anything into the vagina. No douching, tampons, or sexual activity until seen by physician.
== END 2022-07-25 12:25 | disposition home or self-care (01) | DRG 560 ==
LOC: ANHLDR 17:58 → ANHOB2 07-23 17:02
PROVIDERS: Admitting Provider Obstetrics & Gynecology; Visit Provider Obstetrics & Gynecology
DX: O76 Abnormality in fetal heart rate and rhythm complicating labor and delivery (principal); O69.81X0 Labor and delivery complicated by cord around neck, without compression, not applicable or unspecified; O99.344 Other mental disorders complicating childbirth; F41.9 Anxiety disorder, unspecified; F32.A Depression, unspecified; O99.214 Obesity complicating childbirth; O24.424 Gestational diabetes mellitus in childbirth, insulin controlled; Z3A.37 37 weeks gestation of pregnancy; Z37.0 Single live birth
CPT/HCPCS: 36415; 80053; 81003; 82570; 82948; 84156; 84550; 85014; 85018; 85025; 86592; 86703; 86850; 86900; 86901; 88307; 90715; A9270; G0432; J0290; J2590; J2795; J3010; J7120